=== PATIENT | female | born 1945 | race Two or more races ===

== ENCOUNTER 2016-10-09 11:38 | Emergency (ER) | payer MEDICARE, MEDICAID ==
[2016-10-09] MEDS ORDERED: ALBUTEROL/IPRATROPIUM 2.5/0.5 MG 3 ML/EACH DOSE ONE (12:27)
--- NOTE | 2016-10-09 13:54 | RAD ---
CHEST - 2 VIEWS COMPARISON: Chest 2 views 10/08/2016 HISTORY: Cough FINDINGS: Views: Frontal and lateral chest Lungs: No acute finding. Calcified granuloma in the middle third left lung. Heart and vessels: No change. Elongated thoracic aorta. Trachea and bronchi: Normal Mediastinum and tre: Normal Costophrenic sulci: Normal Chest wall and bones: No acute finding. Degenerative changes in the thoracic spine. Upper abdomen: Normal. IMPRESSION: No acute finding. No change compared to 10/08/2016, with calcified granuloma in the middle third left lung and atherosclerosis of the thoracic aorta.
[2016-10-09] MEDS ORDERED: RACEMIC EPINEPHRINE 2.25% 0.5 ML DOSE ONE (14:28)
[2016-10-09] MEDS ORDERED: SODIUM CL FOR INHALATION 3 ML DOSE ONE (14:28)
[2016-10-09] MEDS ORDERED: PREDNISONE 20 MG TABLET ONE ×2 (15:41→15:45)
[2016-10-09] MEDS ORDERED: DOXYCYCLINE HYCLATE 100 MG TABLET ONE (15:42)
== END 2016-10-09 17:28 | disposition home or self-care (01) ==
LOC: ED 11:38
DX: R05 Cough (principal); J42 Unspecified chronic bronchitis; E10.42 Type 1 diabetes mellitus with diabetic polyneuropathy; I10 Essential (primary) hypertension; E78.5 Hyperlipidemia, unspecified; E78.00 Pure hypercholesterolemia, unspecified
CPT/HCPCS: 71020; 87804; 94640 ×2; 99283 ×2; J7512 ×2; A9270 ×3

== ENCOUNTER 2016-11-24 17:02 | Emergency (ER) | payer MEDICARE, MEDICAID ==
[2016-11-24] MEDS ORDERED: HYDROCODONE/ACETAMINOPHEN 5/325MG TABLET ONE (17:58)
[2016-11-24 18:06] LABS: ABSOLUTE NEUTROPHIL COUNT 3.8 K/mm3 (1.8-7.7); BASO # 0.1 K/mm3 (0.0-0.2); BASO % 1.1 % (0.2-1.0); EOS # 0.2 (0.0-0.5); EOS % 2.2 % (0.9-2.9); HEMATOCRIT 39.9 % (37.0-47.0); HEMOGLOBIN 12.4 gm/l (12.0-16.0); IMM NEUT% 0.4 % (0-1); LYMPH # 2.5 (1.0-4.8); LYMPH % 35.2 % (15-45); MEAN CELL VOLUME 97.3 fl (81.0-99.0); MEAN CORPUSCULAR HEMOGLOBIN 30.2 pg (27.0-31.0); MEAN CORPUSCULAR HGB CONC 31.1 g/dl (33.0-37.0); MEAN PLATELET VOLUME 9.5 fl (7.4-10.4); MONO # 0.6 (0.0-0.8); MONO % 7.9 % (4-12); NEUT % 53.2 % (43-75); PLATELET COUNT 210 K/mm3 (130-400); RED CELL DISTRIBUTION WIDTH 14.9 % (11.5-14.5)
[2016-11-24 18:25] LABS: TROPONIN I 0.03 ng/ml (0.0-0.06)
--- NOTE | 2016-11-24 18:41 | RAD ---
Name: DIANE APONTE Exam: Two-view chest Comparison: 10/09/2016 Clinical history: Chest pain Findings: 2 views of the chest are submitted. Heart is nonenlarged. Mediastinum and hilar structures are normal. There is no failure, infiltrate, pleural effusion or pneumothorax. Since the prior exam, a dual-lumen Vas-Cath has been placed and the tips are in the caudal portion of the SVC. Impression: No acute cardiopulmonary process
[2016-11-24 20:16] LABS: ALBUMIN 3.2 gm/dL (3.5-5.7); CALCIUM 8.6 mg/dL (8.6-10.3)
== END 2016-11-24 22:06 | disposition home or self-care (01) ==
LOC: ED 17:02
DX: R07.89 Other chest pain (principal); I12.0 Hypertensive chronic kidney disease with stage 5 chronic kidney disease or end stage renal disease; N18.6 End stage renal disease; E10.9 Type 1 diabetes mellitus without complications; Z99.2 Dependence on renal dialysis; Z79.4 Long term (current) use of insulin
CPT/HCPCS: 85025; 82553; 80053; 84484; 71020; 99284 ×2; A9270